=== PATIENT | male | born 1970 | race African-American/Black ===

== ENCOUNTER 2021-04-23 16:51 | Emergency (ER) | payer OTHER ==
[2021-04-23 18:38] VITALS: BP 144/96; PULSE 74; TEMP 99.2; BMI 27.0
== END 2021-04-23 20:38 | disposition home or self-care (01) ==
LOC: FER 16:51
DX: R10.9 Unspecified abdominal pain (principal)
CPT/HCPCS: 76775-TC; 81003; 81015; 87086; 99284-25

== ENCOUNTER 2022-11-12 21:21 | Emergency (ER) | payer OTHER ==
[2022-11-12 21:27] VITALS: BP 121/59; PULSE 80; RESP 17; TEMP 98.2; BMI 25.7
[2022-11-12] MEDS ORDERED: IBUPROFEN 600 MG TABLET (FP) PO ONE ×2 (23:56→23:58)
[2022-11-13] MEDS ORDERED: COLCHICINE 0.6 MG CAP PO ONE (00:04)
[2022-11-13] MEDS ORDERED: COLCHICINE 0.6 MG TAB ONE (00:06)
== END 2022-11-13 01:31 | disposition home or self-care (01) ==
LOC: JER 21:21
DX: S96.911A Strain of unspecified muscle and tendon at ankle and foot level, right foot, initial encounter (principal); M79.671 Pain in right foot; M79.89 Other specified soft tissue disorders; L29.9 Pruritus, unspecified
CPT/HCPCS: 73630-TC-RT-FY; 99283-25